=== PATIENT | female | born 1975 | race Caucasian/White ===

== ENCOUNTER 2019-07-04 15:13 | Emergency (ER) | payer OTHER ==
[~2019-07-04] VITALS: Ht 162.6 cm; Wt 66.7 kg
[~2019-07-04 15:13] MED LIST: AMLO10TA4 PO; AMLO10TA8 PO; DIAZ5TAB PO; GLUC100018 PO; HYDR-2678 PO; HYDR-3164 PO; LEVO125T PO; MULT-121 PO; OMEP20TA63 PO; PROP10TA PO
--- NOTE | 2019-07-04 15:43 | PHYS DOC ---
Past Medical History Past Medical History: Anxiety, Hypertension, Unknown Additional Past Medical Histor: Chronic back pain. Past Surgical History: Cholecystectomy, Hysterectomy, Tonsillectomy, Tubal ligation, Other Alcohol Use: Occasionally Drug Use: None Adult General Chief Complaint Chief Complaint: HEADACHE HPI HPI Patient is a 43 year old female who presents with Left frontal lobe headache with left eye blurriness and bilateral photophobia since friday. She states this is the worst headache she has ever felt. Patient also complains of left neck tightness and has less ROM when looking to the right. She states she had 7.5 hydrocodone at home and states that is not touching her pain. Last taken at 0900 today. Review of Systems Review of Systems ] Eyes: Photophobia, Left eye blurry, Denies change in visual acuity, redness, or eye pain [] Neurologic: headache,denies focal weakness or sensory changes [] All other systems were reviewed and found to be within normal limits, except as documented in this note. Current Medications Current Medications Current Medications Medications (Trade) Dose Ordered Sig/Fernando Start Time Stop Time Status Last Admin Dose Admin Diphenhydramine HCl (Benadryl) 25 mg 1X ONCE 07/04/19 15:45 07/04/19 15:46 DC 07/04/19 15:46 25 MG Ketorolac Tromethamine (Toradol 30mg Vial) 30 mg 1X ONCE 07/04/19 15:45 07/04/19 15:46 DC 07/04/19 15:47 30 MG Prochlorperazine Edisylate (Compazine) 10 mg 1X ONCE 07/04/19 15:45 07/04/19 15:46 DC 07/04/19 15:47 10 MG Sodium Chloride 1,000 ml @ 1,000 mls/hr 1X ONCE 07/04/19 15:45 07/04/19 16:44 07/04/19 15:44 1,000 MLS/HR Allergies Allergies Allergies Coded Allergies Type Severity Reaction Last Updated Verified Penicillins Allergy Intermediate 05/26/16 Yes Sulfa (Sulfonamide Antibiotics) Allergy Intermediate 05/26/16 Yes azithromycin Allergy Intermediate 05/26/16 Yes cephalexin Allergy Intermediate 05/26/16 Yes hydrochlorothiazide Allergy Intermediate 05/26/16 Yes irbesartan Allergy Intermediate 05/26/16 Yes Physical Exam Physical Exam Constitutional: Well developed, well nourished, no acute distress, non-toxic appearance. [] HENT: Normocephalic, atraumatic, bilateral external ears normal, oropharynx moist, no oral exudates, nose normal. [] Eyes: PERRLA, EOMI, conjunctiva normal, no discharge. [] Neck: looking to right limited range of motion, left sided tenderness, supple, no stridor. [] Cardiovascular:Heart rate regular rhythm, no murmur [] Lungs & Thorax: Bilateral breath sounds clear to auscultation [] Abdomen: Bowel sounds normal, soft, no tenderness, no masses, no pulsatile masses. [] Skin: Warm, dry, no erythema, no rash. [] Back: No tenderness, no CVA tenderness. [] Extremities: No tenderness, no cyanosis, no clubbing, ROM intact, no edema. [] Neurologic: Alert and oriented X 3, normal motor function, normal sensory function, no focal deficits noted. [] Psychologic: Affect normal, judgement normal, mood normal. [] Current Patient Data Vital Signs Vital Signs Date Time Temp Pulse Resp B/P (MAP) Pulse Ox O2 Delivery O2 Flow Rate FiO2 07/04/19 15:15 99.0 73 15 158/86 (110) 97 Room Air 99.0 Lab Values Laboratory Tests Test 07/04/19 15:30 White Blood Count 8.6 x10^3/uL (4.0-11.0) Red Blood Count 4.88 x10^6/uL (3.50-5.40) Hemoglobin 15.4 g/dL (12.0-15.5) Hematocrit 44.4 % (36.0-47.0) Mean Corpuscular Volume 91 fL (79-100) Mean Corpuscular Hemoglobin 32 pg (25-35) Mean Corpuscular Hemoglobin Concent 35 g/dL (31-37) Red Cell Distribution Width 13.6 % (11.5-14.5) Platelet Count 212 x10^3/uL (140-400) Neutrophils (%) (Auto) 74 % (31-73) H Lymphocytes (%) (Auto) 17 % (24-48) L Monocytes (%) (Auto) 8 % (0-9) Eosinophils (%) (Auto) 1 % (0-3) Basophils (%) (Auto) 0 % (0-3) Neutrophils # (Auto) 6.4 x10^3/uL (1.8-7.7) Lymphocytes # (Auto) 1.4 x10^3/uL (1.0-4.8) Monocytes # (Auto) 0.7 x10^3/uL (0.0-1.1) Eosinophils # (Auto) 0.0 x10^3/uL (0.0-0.7) Basophils # (Auto) 0.0 x10^3/uL (0.0-0.2) Sodium Level 143 mmol/L (136-145) Potassium Level 3.2 mmol/L (3.5-5.1) L Chloride Level 105 mmol/L (98-107) Carbon Dioxide Level 30 mmol/L (21-32) Anion Gap 8 (6-14) Blood Urea Nitrogen 13 mg/dL (7-20) Creatinine 0.8 mg/dL (0.6-1.0) Estimated GFR (Cockcroft-Gault) 78.3 BUN/Creatinine Ratio 16 (6-20) Glucose Level 124 mg/dL (70-99) H Calcium Level 8.9 mg/dL (8.5-10.1) Total Bilirubin 0.3 mg/dL (0.2-1.0) Aspartate Amino Transferase (AST) 23 U/L (15-37) Alanine Aminotransferase (ALT) 39 U/L (14-59) Alkaline Phosphatase 74 U/L (46-116) Total Protein 6.8 g/dL (6.4-8.2) Albumin 3.8 g/dL (3.4-5.0) Albumin/Globulin Ratio 1.3 (1.0-1.7) Laboratory Tests 07/04/19 15:30 Laboratory Tests 07/04/19 15:30 EKG EKG [] Radiology/Procedures Radiology/Procedures [] Impressions: [facility] [address] [place] [address] IMAGING REPORT Signed PATIENT: GENEVIEVE ZHAO ACCOUNT: [id number] : 1975 LOCATION: ER AGE: 43 SEX: F EXAM STATUS: REG ER ORD. PHYSICIAN: LO ALANIS APRN REASON: pain PROCEDURE: CT HEAD AND CERVICAL SPINE WO CT brain without contrast, CT cervical spine without contrast. HISTORY: Pain, stiff neck CT brain CT scan of the brain was done without contrast. Sinuses are clear. There is no skull fracture. There is no mass or shift of the midline. An acute CVA is not identified. There are no abnormal areas of increased or decreased attenuation. IMPRESSION: 1. No intracranial hemorrhage or acute finding. End impression CT cervical spine Axial CT images were obtained to the cervical spine. Sagittal and coronal reconstructed images were reviewed. C-spine is in normal alignment on the lateral view. A fracture is not identified. Disc spaces are normal in height. Neural foramina are patent. Thyroid is homogeneous. Upper aspect of the lungs are clear. There is mild bulging of disc but a focal disc protrusion is not otherwise identified. There is slight scoliosis which could be positional or related to muscle spasm. IMPRESSION: 1. No fracture noted in the cervical spine. 2. Mild disc bulging without focal disc protrusion or other acute finding. RS Compliance Statement: One or more of the following individualized dose reduction techniques were utilized for this examination: 1. Automated exposure control 2. Adjustment of the mA and/or kV according to patient size 3. Use of iterative reconstruction technique Electronically signed by: Roger Mercedes MD (07/04/2019 4:25 PM) [id number] DICTATED and SIGNED BY: ROGER MERCEDES MD DATE: 07/04/19 162 Course & Med Decision Making Course & Med Decision Making Tenderness with palpation to left neck. Patient neck Supple with only slight less than normal ROM when looking to the right than the left. Alert and oriented. 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 Patients temperature is 99.0. Denies numbness or tingling, nausea, vomiting, weakness, chest pain, shortness of air, dizziness, cough, recent illness. Ambulatory with a steady gait. Equal movements and strength in all extremities. Skin pink warm and dry. PERRLA. After Toradol, Compazine and benadryl given patient states she is feeling much better with her pain a 2/10. I have spoken to Dr Gabriel concerning this patient and he does not think a LP is warranted. Lab work is unremarkable. Patient is discharged home. Fredi Disclaimer Vicenteon Disclaimer This electronic medical record was generated, in whole or in part, using a voice recognition dictation system. NIHSS Stroke Scale NIH Stroke Scale: NIH Stroke Scale Response (Comments) Value Level of Consciousness: 0 Alert/Responsive 0 LOC Questions: 0 Answers both correctly 0 LOC Commands: 0 Performs both tasks 0 Best Gaze: 0 Normal 0 Visual: 0 No visual loss 0 Facial Palsy: 0 Normal, symmetrical 0 Motor - Left Arm 0 No drift 0 Motor - Right Arm 0 No drift 0 Motor - Left Leg 0 No drift 0 Motor: Right Leg 0 No drift 0 Limb Ataxia: 0 Absent 0 Sensory: 0 No loss 0 Best Language: 0 Normal 0 Dysathria: 0 Normal 0 Extinction and Inattention: 0 Normal 0 Total 0 Departure Departure Impression: Primary Impression: Headache Disposition: HOME, SELF-CARE Condition: STABLE Referrals: REYNALDO DAVENPORT MD (PCP) Patient Instructions: Migraine Headache Additional Instructions: Follow up with primary care provider. Take medications as prescribed. Scripts Orphenadrine Citrate (ORPHENADRINE CITRATE) 100 Mg Tablet.er 1 TAB PO BID, #20 TAB Prov: LO ALANIS APRN 07/04/19 Problem Qualifiers Primary Impression: Headache Headache type: unspecified Headache chronicity pattern: acute headache Intractability: not intractable Qualified Codes: R51 - Headache LO ALANIS APRN Jul 04, 2019 15:43
[2019-07-04] MEDS ORDERED: KETOROLAC 30 MG/ML VIAL. IVP ONE (15:45)
[2019-07-04] MEDS ORDERED: IV NORMAL SALINE 1000ML BAG 1,000 ML IV ONE (15:45)
[2019-07-04] MEDS ORDERED: PROCHLORPERAZINE 10 MG/2 ML VIAL. IV ONE (15:45)
[2019-07-04] MEDS ORDERED: diphenhydrAMINE 50 MG/ML VIAL IVP ONE (15:45)
[2019-07-04 15:51] LABS: BASO % 0 % (0-3); EOS % 1 % (0-3); HEMATOCRIT 44.4 % (36.0-47.0); HEMOGLOBIN 15.4 g/dL (12.0-15.5); LYMPH # 1.4 x10^3/uL (1.0-4.8); LYMPH % 17 % (24-48); MEAN CORPUSCULAR HEMOGLOBIN 32 pg (25-35); MEAN CORPUSCULAR HGB CONC 35 g/dL (31-37); MEAN CORPUSCULAR VOLUME 91 fL (79-100); MONO # 0.7 x10^3/uL (0.0-1.1); MONO % 8 % (0-9); NEUT # 6.4 x10^3/uL (1.8-7.7); NEUT % 74 % (31-73); PLATELET COUNT 212 x10^3/uL (140-400); RED BLOOD COUNT 4.88 x10^6/uL (3.50-5.40); RED CELL DISTRIBUTION WIDTH 13.6 % (11.5-14.5); WHITE BLOOD COUNT 8.6 x10^3/uL (4.0-11.0)
[2019-07-04 15:56] LABS: CALCIUM 8.9 mg/dL (8.5-10.1); CREATININE 0.8 mg/dL (0.6-1.0); GFR 78.3; POTASSIUM 3.2 mmol/L (3.5-5.1)
[2019-07-04 16:03] LABS: ALBUMIN 3.8 g/dL (3.4-5.0); ALBUMIN/GLOBULIN RATIO 1.3 (1.0-1.7); TOTAL BILIRUBIN 0.3 mg/dL (0.2-1.0); TOTAL PROTEIN 6.8 g/dL (6.4-8.2)
[2019-07-04 16:23] VITALS: BP 159/83
--- NOTE | 2019-07-04 16:28 | RAD ---
CT brain without contrast, CT cervical spine without contrast. HISTORY: Pain, stiff neck CT brain CT scan of the brain was done without contrast. Sinuses are clear. There is no skull fracture. There is no mass or shift of the midline. An acute CVA is not identified. There are no abnormal areas of increased or decreased attenuation. IMPRESSION: 1. No intracranial hemorrhage or acute finding. End impression CT cervical spine Axial CT images were obtained to the cervical spine. Sagittal and coronal reconstructed images were reviewed. C-spine is in normal alignment on the lateral view. A fracture is not identified. Disc spaces are normal in height. Neural foramina are patent. Thyroid is homogeneous. Upper aspect of the lungs are clear. There is mild bulging of disc but a focal disc protrusion is not otherwise identified. There is slight scoliosis which could be positional or related to muscle spasm. IMPRESSION: 1. No fracture noted in the cervical spine. 2. Mild disc bulging without focal disc protrusion or other acute finding. PQRS Compliance Statement: One or more of the following individualized dose reduction techniques were utilized for this examination: 1. Automated exposure control 2. Adjustment of the mA and/or kV according to patient size 3. Use of iterative reconstruction technique Electronically signed by: Roger Mercedes MD (07/04/2019 4:25 PM) [id number]
[2019-07-04] MEDS ORDERED: ORPH100T PO (16:34)
[2019-07-04 16:41] LABS: BILIRUBIN,URINE NEGATIVE (NEG); CLARITY,URINE CLEAR; COLOR,URINE YELLOW; NITRITE,URINE NEGATIVE (NEG); PROTEIN,URINE NEGATIVE (NEG-TRACE); UROBILINOGEN,URINE 0.2 mg/dL (0.2 mg/dL)
[2019-07-04 16:46] LABS: BACTERIA,URINE MANY /HPF (0-FEW)
[2019-07-04 16:47] LABS: BARBITURATES NEG (NEG); BENZODIAZEPINES POS (NEG); CANNABINOIDS NEG (NEG); COCAINE NEG (NEG); METHADONE NEG (NEG); OPIATES POS (NEG); PHENCYCLIDINE NEG (NEG); SQUAMOUS EPITHELIAL CELL,UR MANY /LPF
[2019-07-04 16:49] LABS: AMPHETAMINE/METHAMPHETAMINE NEG (NEG)
== END 2019-07-04 17:00 | disposition home or self-care (01) ==
LOC: ER 15:13
DX: R51 Headache (principal); H53.143 Visual discomfort, bilateral; G89.29 Other chronic pain; F41.9 Anxiety disorder, unspecified; I10 Essential (primary) hypertension; Z88.0 Allergy status to penicillin; Z88.1 Allergy status to other antibiotic agents; Z88.2 Allergy status to sulfonamides; Z88.8 Allergy status to other drugs, medicaments and biological substances
CPT/HCPCS: 36415; 70450; 72125; 80053; 80307; 81001; 85025; 87086; 96374; 96375; 99285; J0780; J1200; J1885; J7030